=== PATIENT | male | born 1985 | race African-American/Black ===

== ENCOUNTER 2021-12-31 13:45 | Emergency (ER) | payer SELFPAY ==
[~2021-12-31] VITALS: Ht 175.3 cm; Wt 69.0 kg
[2021-12-31] MEDS ORDERED: ONDANSETRON HCL 4MG/2ML INJ IV STA (19:42)
[2021-12-31] MEDS ORDERED: SODIUM CHLORIDE 0.9% 1,000 ML IV ONE ×2 (19:45)
[2021-12-31 19:56] LABS: HEMATOCRIT. 42.2 % (42.0-52.0); HEMOGLOBIN. 14.2 g/dL (14.0-18.0); MEAN CORPUSCULAR HEMOGLOBIN 27.2 pg (28.0-32.0); MEAN CORPUSCULAR VOLUME 80.6 fL (80.0-94.0); MEAN PLATELET VOLUME 8.8 fl (7.4-10.4); PLATELET 199 x1000/uL (130-400); RED BLOOD CELL COUNT 5.23 mill/uL (4.7-6.1); RED CELL DISTRIBUTION WIDTH 13.4 % (11.6-14.6)
[2021-12-31 20:05] LABS: CHLORIDE 100 mEq/L (98-107)
[2021-12-31 20:12] LABS: BETA HYDROXYBUTYRATE 0.3 mMol/L (0.0-0.3)
[2021-12-31 20:34] LABS: PLATELET ESTIMATE NORMAL
[2022-01-01] MEDS ORDERED: ONDA4TAB50 MT (02:33)
[2022-01-01 03:17] VITALS: BP 133/79
== END 2022-01-01 03:19 | disposition home or self-care (01) ==
LOC: ER 13:45
DX: R11.2 Nausea with vomiting, unspecified (principal); R50.9 Fever, unspecified; R05.9 Cough, unspecified; F17.290 Nicotine dependence, other tobacco product, uncomplicated; F12.10 Cannabis abuse, uncomplicated
CPT/HCPCS: 36415; 70450; 71045; 74176; 80053; 82010; 83605; 83690; 85025; 93005; 96361; 96374; 99285; J2405; J7030